=== PATIENT | female | born 2000 | race Two or more races ===

== ENCOUNTER 2019-08-29 23:10 | Emergency (ER) | payer SELFPAY ==
[~2019-08-29] VITALS: Ht 152.4 cm; Wt 85.0 kg
[2019-08-29 23:43] LABS: BILIRUBIN,URINE NEGATIVE (NEG); CLARITY,URINE CLEAR; COLOR,URINE YELLOW; NITRITE,URINE NEGATIVE (NEG); PROTEIN,URINE NEGATIVE (NEG-TRACE)
[2019-08-29 23:46] LABS: RBC,URINE 0 /HPF (0-2); SQUAMOUS EPITHELIAL CELL,UR FEW /LPF
[2019-08-29 23:47] LABS: BACTERIA,URINE MODERATE /HPF (0-FEW)
[2019-08-29 23:52] LABS: BASO % 0 % (0-3); EOS # 0.1 x10^3/uL (0.0-0.7); EOS % 1 % (0-3); HEMATOCRIT 33.7 % (36.0-47.0); LYMPH # 2.4 x10^3/uL (1.0-4.8); LYMPH % 45 % (24-48); MEAN CORPUSCULAR HEMOGLOBIN 21 pg (25-35); MEAN CORPUSCULAR HGB CONC 33 g/dL (31-37); MEAN CORPUSCULAR VOLUME 64 fL (79-100); MONO # 0.6 x10^3/uL (0.0-1.1); MONO % 11 % (0-9); NEUT # 2.2 x10^3/uL (1.8-7.7); NEUT % 42 % (31-73); PLATELET COUNT 239 x10^3/uL (140-400); RED BLOOD COUNT 5.31 x10^6/uL (3.50-5.40); RED CELL DISTRIBUTION WIDTH 18.7 % (11.5-14.5); WHITE BLOOD COUNT 5.3 x10^3/uL (4.0-11.0)
[2019-08-30 00:01] LABS: CALCIUM 8.6 mg/dL (8.5-10.1); CREATININE 0.7 mg/dL (0.6-1.0); GFR 106.7; POTASSIUM 3.7 mmol/L (3.5-5.1)
[2019-08-30 00:07] LABS: ALBUMIN 3.9 g/dL (3.4-5.0); ALBUMIN/GLOBULIN RATIO 1.2 (1.0-1.7); TOTAL BILIRUBIN 0.5 mg/dL (0.2-1.0); TOTAL PROTEIN 7.2 g/dL (6.4-8.2)
[2019-08-30 00:40] LABS: ANISOCYTOSIS SLIGHT; HYPOCHROMIA MARKED; MICROCYTOSIS MOD; PLT ESTIMATE ADEQUATE (ADEQUATE); POLYCHROMASIA SLIGHT
--- NOTE | 2019-08-30 00:56 | RAD ---
TRANSVAGINAL DATE: 08/29/2019 11:28 PM HISTORY: LEFT ADNEXAL TENDERNESS. LMP 08/19/2019. HCG negative. COMPARISON: None. TECHNIQUE: Transvaginal pelvic ultrasound was performed. FINDINGS: The uterus measures 7.5 x 4.7 x 3.2 cm. The myometrium demonstrates normal echogenicity without focal lesion. The endometrial echo measures 8 mm. The right ovary measures 3.5 x 2.1 x 1.9 cm. The left ovary measures 3.2 x 2.1 x 2.1 cm. The bilateral ovaries are physiologic in appearance. Normal vascularity in the bilateral ovaries by color Doppler examination. No free fluid. IMPRESSION: Physiologic appearance of the uterus and ovaries. No evidence of ovarian torsion. Electronically signed by: Rolando Oreilly MD (08/30/2019 12:52 AM) [facility]
[2019-08-30] MEDS ORDERED: AZITHROMYCIN 250 MG TABLET. PO ONE (01:00)
[2019-08-30] MEDS ORDERED: cefTRIAXone IM 250 MG VIAL IM ONE (01:00)
[2019-08-30] MEDS ORDERED: ONDANSETRON ODT 4 MG TAB.RAPDIS. PO ONE (01:00)
--- NOTE | 2019-08-30 01:22 | PHYS DOC ---
Past Medical History Past Medical History: No Pertinent History Past Surgical History: No Surgical History Smoking Status: Never Smoker Alcohol Use: None General Adult EDM: Chief Complaint: ABDOMINAL PAIN HPI: HPI: Patient is a 18 year old female presenting to the ED with a chief complaint of vaginal discharge. She also complains of pelvic pain that is been present for the last 2 or 3 days. Patient denies any new sexual partners. Patient states that she has similar complaints previously when she lived in [place]. Patient states that she was given medication at that time and had similar complaints. Patient denies vaginal bleeding, vaginal spotting, . Patient denies fever, chills, nausea, vomiting, chest pain, shortness of breath. Review of Systems: Review of Systems: Constitutional: Denies fever or chills. [] Eyes: Denies change in visual acuity. [] HENT: Denies nasal congestion or sore throat. [] Respiratory: Denies cough or shortness of breath. [] Cardiovascular: Denies chest pain or edema. [] GI: Complains of pelvic pain [] : Complains of vaginal discharge. Patient denies vaginal bleeding, vaginal spotting. Heart Score: Risk Factors: Risk Factors: DM, Current or recent (<one month) smoker, HTN, HLP, family history of CAD, obesity. Risk Scores: Score 0 - 3: 2.5% MACE over next 6 weeks - Discharge Home Score 4 - 6: 20.3% MACE over next 6 weeks - Admit for Clinical Observation Score 7 - 10: 72.7% MACE over next 6 weeks - Early Invasive Strategies Current Medications: Current Medications Medications (Trade) Dose Ordered Sig/[facility] Start Time Stop Time Status Last Admin Dose Admin Azithromycin (Zithromax) 1,000 mg 1X ONCE 08/30/19 01:00 08/30/19 01:01 DC Ceftriaxone Sodium (Rocephin Im) 250 mg 1X ONCE 08/30/19 01:00 08/30/19 01:01 DC Ondansetron HCl (Zofran Odt) 4 mg 1X ONCE 08/30/19 01:00 08/30/19 01:01 DC Allergies: Allergies: Allergies Coded Allergies Type Severity Reaction Last Updated Verified No Known Drug Allergies 08/29/19 No Physical Exam: PE: Constitutional: Well developed, well nourished, no acute distress, non-toxic appearance. [] HENT: Normocephalic, atraumatic Eyes: EOMI Neck: Normal range of motion, Supple Cardiovascular:Heart rate regular rhythm Lungs & Thorax: Bilateral breath sounds clear to auscultation [] Abdomen: Bilateral pelvic pain Vaginal exam: Cervical motion tenderness. Left adnexal tenderness. Moderate d ischarge present Extremities: No tenderness, ROM intact Neurologic: Alert and oriented X 3 Current Patient Data: Labs: Laboratory Tests Test 08/29/19 23:15 08/29/19 23:23 08/29/19 23:47 Urine Collection Type Unknown Urine Color Yellow Urine Clarity Clear Urine pH 6.0 (<5.0-8.0) Urine Specific [place] 1.025 (1.000-1.030) Urine Protein Negative mg/dL (NEG-TRACE) Urine Glucose (UA) Negative mg/dL (NEG) Urine Ketones (Stick) Negative mg/dL (NEG) Urine Blood Negative (NEG) Urine Nitrite Negative (NEG) Urine Bilirubin Negative (NEG) Urine Urobilinogen Dipstick 1.0 mg/dL (0.2 mg/dL) Urine Leukocyte Esterase Trace (NEG) Urine RBC 0 /HPF (0-2) Urine WBC 5-10 /HPF (0-4) Urine Squamous Epithelial Cells Few /LPF Urine Bacteria Moderate /HPF (0-FEW) Urine Mucus Mod /LPF POC Urine HCG, Qualitative Hcg negative (Negative) White Blood Count 5.3 x10^3/uL (4.0-11.0) Red Blood Count 5.31 x10^6/uL (3.50-5.40) Hemoglobin 11.0 g/dL (12.0-15.5) L Hematocrit 33.7 % (36.0-47.0) L Mean Corpuscular Volume 64 fL (79-100) L Mean Corpuscular Hemoglobin 21 pg (25-35) L Mean Corpuscular Hemoglobin Concent 33 g/dL (31-37) Red Cell Distribution Width 18.7 % (11.5-14.5) H Platelet Count 239 x10^3/uL (140-400) Neutrophils (%) (Auto) 42 % (31-73) Lymphocytes (%) (Auto) 45 % (24-48) Monocytes (%) (Auto) 11 % (0-9) H Eosinophils (%) (Auto) 1 % (0-3) Basophils (%) (Auto) 0 % (0-3) Neutrophils # (Auto) 2.2 x10^3/uL (1.8-7.7) Lymphocytes # (Auto) 2.4 x10^3/uL (1.0-4.8) Monocytes # (Auto) 0.6 x10^3/uL (0.0-1.1) Eosinophils # (Auto) 0.1 x10^3/uL (0.0-0.7) Basophils # (Auto) 0.0 x10^3/uL (0.0-0.2) Platelet Estimate Adequate (ADEQUATE) Giant Platelets Occ Polychromasia Slight Hypochromasia Marked Basophilic Stippling Present Anisocytosis Slight Microcytosis Mod Sodium Level 140 mmol/L (136-145) Potassium Level 3.7 mmol/L (3.5-5.1) Chloride Level 104 mmol/L (98-107) Carbon Dioxide Level 28 mmol/L (21-32) Anion Gap 8 (6-14) Blood Urea Nitrogen 11 mg/dL (7-20) Creatinine 0.7 mg/dL (0.6-1.0) Estimated GFR (Cockcroft-Gault) 106.7 BUN/Creatinine Ratio 16 (6-20) Glucose Level 98 mg/dL (70-99) Calcium Level 8.6 mg/dL (8.5-10.1) Total Bilirubin 0.5 mg/dL (0.2-1.0) Aspartate Amino Transferase (AST) 21 U/L (15-37) Alanine Aminotransferase (ALT) 33 U/L (14-59) Alkaline Phosphatase 87 U/L (46-116) Total Protein 7.2 g/dL (6.4-8.2) Albumin 3.9 g/dL (3.4-5.0) Albumin/Globulin Ratio 1.2 (1.0-1.7) Laboratory Tests 08/29/19 23:47 Laboratory Tests 08/29/19 23:47 Microbiology 08/29/19 Wet Prep - Final, Complete Vital Signs: Vital Signs Date Time Temp Pulse Resp B/P (MAP) Pulse Ox O2 Delivery O2 Flow Rate FiO2 08/29/19 23:15 98.3 66 16 119/66 (83) 98 Room Air 98.3 EKG: EKG: [] Radiology/Procedures: Radiology/Procedures: [] Impression: US PELVIS IMPRESSION: Physiologic appearance of the uterus and ovaries. No evidence of ovarian torsion. Course & Med Decision Making: Course & Med Decision Making Pertinent Labs and Imaging studies reviewed. (See chart for details) Labs are within normal limits. Ultrasound does not show any acute process. Wet prep is negative. No clue cells seen. Patient was treated with Rocephin 250 mg IM and Zithromax 1000 mg oral tablet Patient is also given Diflucan in the ER. Patient will be discharged home on doxycycline. Discussed results and plan of care with patient. Patient is instructed to follow up with PCP in one to 2 days. Appropriate discharge instructions given to patient to return to the ED or to seek immediate medical evaluation. Patient is instructed to return to the ED if symptoms worsen or if any concerns. Dragon Disclaimer: Dragon Disclaimer: This electronic medical record was generated, in whole or in part, using a voice recognition dictation system. Departure Departure Impression: Primary Impression: Cervicitis Disposition: HOME, SELF-CARE Condition: GOOD Referrals: NO PCP (PCP) Patient Instructions: Cervicitis, Pelvic Inflammatory Disease Additional Instructions: Discussed results and plan of care with patient. Patient is instructed to follow up with PCP in one to 2 days. Appropriate discharge instructions given to patient to return to the ED or to seek immediate medical evaluation. Patient is instructed to return to the ED if symptoms worsen or if any concerns. Patient is instructed not to have any intercourse until symptoms are resolved. Scripts Doxycycline Hyclate (DOXYCYCLINE HYCLATE) 100 Mg Tablet 1 TAB PO BID, #20 TAB Prov: NEVILLE PLASCENCIA DO 08/30/19 Justicifation of Admission Dx: Justifications for Admission: Justification of Admission Dx: NEVILLE Souza DO Aug 30, 2019 01:22
[2019-08-30] MEDS ORDERED: FLUCONAZOLE 100 MG TABLET. ONE (01:23)
[2019-08-30] MEDS ORDERED: DOXY100T PO (01:25)
[2019-08-30 01:41] VITALS: BP 117/71
[2019-08-30] MEDS ORDERED: FLUCONAZOLE 100 MG TABLET. PO ONE (02:00)
[2019-08-30] MEDS ORDERED: DOXYCYCLINE HYCLATE 100 MG TABLET PO ONE (02:00)
[2019-08-31 19:09] LABS: GC PROBE Negative (Negative)
== END 2019-08-30 01:47 | disposition home or self-care (01) ==
LOC: ER 23:10
DX: N72 Inflammatory disease of cervix uteri (principal)
CPT/HCPCS: 76830; 80053; 81001; 81025; 85025; 87086; 87491; 87591; 96372; 99284; J0696; Q0111; 36415

== ENCOUNTER 2020-06-19 23:12 | Emergency (ER) | payer SELFPAY ==
[~2020-06-19] VITALS: Ht 160 cm; Wt 81.8 kg
[~2020-06-19 23:12] MED LIST: DOXY100T PO
[2020-06-20 01:22] LABS: BASO % 0 % (0-3); EOS % 0 % (0-3); HEMATOCRIT 31.9 % (36.0-47.0); HEMOGLOBIN 10.2 g/dL (12.0-15.5); LYMPH # 1.6 x10^3/uL (1.0-4.8); LYMPH % 35 % (24-48); MEAN CORPUSCULAR HEMOGLOBIN 21 pg (25-35); MEAN CORPUSCULAR HGB CONC 32 g/dL (31-37); MEAN CORPUSCULAR VOLUME 65 fL (79-100); MONO # 0.5 x10^3/uL (0.0-1.1); MONO % 11 % (0-9); NEUT # 2.5 x10^3/uL (1.8-7.7); NEUT % 54 % (31-73); PLATELET COUNT 291 x10^3/uL (140-400); RED CELL DISTRIBUTION WIDTH 16.3 % (11.5-14.5); WHITE BLOOD COUNT 4.7 x10^3/uL (4.0-11.0)
[2020-06-20 01:33] LABS: BILIRUBIN,URINE NEGATIVE (NEG); CLARITY,URINE CLEAR; COLOR,URINE YELLOW; NITRITE,URINE NEGATIVE (NEG); PROTEIN,URINE NEGATIVE (NEG-TRACE)
[2020-06-20 01:40] LABS: CALCIUM 9.4 mg/dL (8.5-10.1); CREATININE 0.6 mg/dL (0.6-1.0); GFR 126.2; POTASSIUM 3.6 mmol/L (3.5-5.1)
[2020-06-20 01:48] LABS: ALBUMIN 4.3 g/dL (3.4-5.0); ALBUMIN/GLOBULIN RATIO 1.2 (1.0-1.7); TOTAL BILIRUBIN 0.7 mg/dL (0.2-1.0); TOTAL PROTEIN 7.8 g/dL (6.4-8.2)
[2020-06-20 02:04] LABS: BACTERIA,URINE FEW /HPF (0-FEW); RBC,URINE 0 /HPF (0-2)
[2020-06-20 02:29] LABS: PLT ESTIMATE ADEQUATE (ADEQUATE)
[2020-06-20 02:32] LABS: ANISOCYTOSIS MOD; HYPOCHROMIA MARKED; MICROCYTOSIS MARKED; OVALOCYTES MOD; POLYCHROMASIA SLIGHT
[2020-06-20 02:33] LABS: SPHEROCYTES OCC
--- NOTE | 2020-06-20 03:04 | RAD ---
OB ultrasound dated 06/20/2020. No comparison available. Clinical indication: Pelvic pain. FINDINGS: Gestational sac within the endometrial canal measures 0.25 cm, correlating with a 5 week 0 day gestat ion. No pole or cardiac activity at this time. No subchorionic collection. The uterus measures 8.5 x 4.9 x 3.5 cm. Right ovary measures 2.6 x 2.2 x 1.8 cm. Left ovary measures 2.1 x 1.9 x 1.8 cm. No adnexal mass or f ree fluid. Normal color flow to both ovaries. IMPRESSION: 1. Gestational sac in the endometrial canal with no evidence of pole or cardiac activity at thi s time. This could represent an early viable IUP. Correlate with beta hCG values and follow-up imagin g if indicated. 2. No apparent adnexal mass or free fluid. Electronically signed by: Epi Blanco MD (06/20/2020 3:01 AM) [facility]
--- NOTE | 2020-06-20 03:08 | PHYS DOC ---
Past Medical History Past Medical History: No Pertinent History Past Surgical History: No Surgical History Smoking Status: Never Smoker Alcohol Use: None General Adult EDM: Chief Complaint: ABDOMINAL PAIN IN HPI: HPI: Patient is a 19 year old female who is about 6 weeks presented to ER due to low abdominal pain with vaginal discharge. Last menstrual period was on 05/13/2020. She has been 3 times have to live children. Patient denies any vaginal bleeding. Patient denies any cough or fever. Patient denies any chest pain or any trouble breathing. Review of Systems: Review of Systems: Constitutional: Denies fever or chills. [] Eyes: Denies change in visual acuity. [] HENT: Denies nasal congestion or sore throat. [] Respiratory: Denies cough or shortness of breath. [] Cardiovascular: Denies chest pain or edema. [] GI: Denies abdominal pain, nausea, vomiting, bloody stools or diarrhea. [] : Denies dysuria. Positive for vaginal discharge and pelvic pain. Musculoskeletal: Denies back pain or joint pain. [] Integument: Denies rash. [] Neurologic: Denies headache, focal weakness or sensory changes. [] Endocrine: Denies polyuria or polydipsia. [] Lymphatic: Denies swollen glands. [] Psychiatric: Denies depression or anxiety. [] Heart Score: C/O Chest Pain: N/A Risk Factors: Risk Factors: DM, Current or recent (<one month) smoker, HTN, HLP, family history of CAD, obesity. Risk Scores: Score 0 - 3: 2.5% MACE over next 6 weeks - Discharge Home Score 4 - 6: 20.3% MACE over next 6 weeks - Admit for Clinical Observation Score 7 - 10: 72.7% MACE over next 6 weeks - Early Invasive Strategies Allergies: Allergies: Allergies Coded Allergies Type Severity Reaction Last Updated Verified I S O L A T I O N *CONTACT* Allergy Unknown 09/02/19 Yes No Known Medication Allergies Allergy Unknown 09/02/19 Yes Physical Exam: PE: Constitutional: Well developed, well nourished, no acute distress, non-toxic appearance. [] HENT: Normocephalic, atraumatic, bilateral external ears normal, oropharynx moist, no oral exudates, nose normal. [] Eyes: PERRLA, EOMI, conjunctiva normal, no discharge. [] Neck: Normal range of motion, no tenderness, supple, no stridor. [] Cardiovascular:Heart rate regular rhythm, no murmur [] Lungs & Thorax: Bilateral breath sounds clear to auscultation [] Abdomen: Bowel sounds normal, soft, no tenderness, no masses, no pulsatile masses. : NO VAGINAL BLEEDING, CERVIX IS CLOSE, NO CERVICAL MOTION TENDERNESS TO PALPATION, NO ADNEXA TENDERNESS TO PALPATION, CLEAR DISCHARGE IN VAGINAL CANAL. Skin: Warm, dry, no erythema, no rash. [] Back: No tenderness, no CVA tenderness. [] Extremities: No tenderness, no cyanosis, no clubbing, ROM intact, no edema. [] Neurologic: Alert and oriented X 3, normal motor function, normal sensory function, no focal deficits noted. [] Psychologic: Affect normal, judgement normal, mood normal. [] Current Patient Data: Labs: Laboratory Tests Test 06/20/20 00:45 06/20/20 00:48 06/20/20 01:25 Maternal Serum HCG Beta Subunit 1375 mIU/mL (0-5) H White Blood Count 4.7 x10^3/uL (4.0-11.0) Red Blood Count 4.90 x10^6/uL (3.50-5.40) Hemoglobin 10.2 g/dL (12.0-15.5) L Hematocrit 31.9 % (36.0-47.0) L Mean Corpuscular Volume 65 fL (79-100) L Mean Corpuscular Hemoglobin 21 pg (25-35) L Mean Corpuscular Hemoglobin Concent 32 g/dL (31-37) Red Cell Distribution Width 16.3 % (11.5-14.5) H Platelet Count 291 x10^3/uL (140-400) Neutrophils (%) (Auto) 54 % (31-73) Lymphocytes (%) (Auto) 35 % (24-48) Monocytes (%) (Auto) 11 % (0-9) H Eosinophils (%) (Auto) 0 % (0-3) Basophils (%) (Auto) 0 % (0-3) Neutrophils # (Auto) 2.5 x10^3/uL (1.8-7.7) Lymphocytes # (Auto) 1.6 x10^3/uL (1.0-4.8) Monocytes # (Auto) 0.5 x10^3/uL (0.0-1.1) Eosinophils # (Auto) 0.0 x10^3/uL (0.0-0.7) Basophils # (Auto) 0.0 x10^3/uL (0.0-0.2) Platelet Estimate Adequate (ADEQUATE) Polychromasia Slight Hypochromasia Marked Anisocytosis Mod Microcytosis Marked Spherocytes Occ Ovalocytes Mod Sodium Level 143 mmol/L (136-145) Potassium Level 3.6 mmol/L (3.5-5.1) Chloride Level 104 mmol/L (98-107) Carbon Dioxide Level 27 mmol/L (21-32) Anion Gap 12 (6-14) Blood Urea Nitrogen 8 mg/dL (7-20) Creatinine 0.6 mg/dL (0.6-1.0) Estimated GFR (Cockcroft-Gault) 126.2 BUN/Creatinine Ratio 13 (6-20) Glucose Level 97 mg/dL (70-99) Calcium Level 9.4 mg/dL (8.5-10.1) Total Bilirubin 0.7 mg/dL (0.2-1.0) Aspartate Amino Transferase (AST) 24 U/L (15-37) Alanine Aminotransferase (ALT) 30 U/L (14-59) Alkaline Phosphatase 73 U/L (46-116) Total Protein 7.8 g/dL (6.4-8.2) Albumin 4.3 g/dL (3.4-5.0) Albumin/Globulin Ratio 1.2 (1.0-1.7) Urine Collection Type Unknown Urine Color Yellow Urine Clarity Clear Urine pH 6.0 (<5.0-8.0) Urine Specific [place] 1.025 (1.000-1.030) Urine Protein Negative mg/dL (NEG-TRACE) Urine Glucose (UA) Negative mg/dL (NEG) Urine Ketones (Stick) Negative mg/dL (NEG) Urine Blood Negative (NEG) Urine Nitrite Negative (NEG) Urine Bilirubin Negative (NEG) Urine Urobilinogen Dipstick 1.0 mg/dL (0.2 mg/dL) Urine Leukocyte Esterase Trace (NEG) Urine RBC 0 /HPF (0-2) Urine WBC 1-4 /HPF (0-4) Urine Squamous Epithelial Cells Few /LPF Urine Bacteria Few /HPF (0-FEW) Urine Mucus Slight /LPF Laboratory Tests 06/20/20 00:48 Laboratory Tests 06/20/20 00:48 Vital Signs: Vital Signs Date Time Temp Pulse Resp B/P (MAP) Pulse Ox O2 Delivery O2 Flow Rate FiO2 06/20/20 00:10 98.2 86 18 132/87 (102) 100 Room Air 98.2 EKG: EKG: [] Radiology/Procedures: Radiology/Procedures: [facility] [id number] [place] [address] IMAGING REPORT Signed PATIENT: FLETCHER CHILDRESSUNT: [id number] : 2000 LOCATION: ER AGE: 19 SEX: F EXAM STATUS: REG ER ORD. PHYSICIAN: SEVERO BARRIGA DO REASON: , pelvic pain for 1 week, hcg 1375 PROCEDURE: OB < 14 WKS OB ultrasound dated 06/20/2020. No comparison available. Clinical indication: Pelvic pain. FINDINGS: Gestational sac within the endometrial canal measures 0.25 cm, correlating with a 5 week 0 day gestation. No pole or cardiac activity at this time. No subchorionic collection. The uterus measures 8.5 x 4.9 x 3.5 cm. Right ovary measures 2.6 x 2.2 x 1.8 cm. Left ovary measures 2.1 x 1.9 x 1.8 cm. No adnexal mass or free fluid. Normal color flow to both ovaries. IMPRESSION: 1. Gestational sac in the endometrial canal with no evidence of pole or cardiac activity at this time. This could represent an early viable IUP. Correl ate with beta hCG values and follow-up imaging if indicated. 2. No apparent adnexal mass or free fluid. Electronically signed by: Epi Blanco MD (06/20/2020 3:01 AM) [facility] DICTATED and SIGNED BY: EPI BLANCO MD DATE: 06/20/20 [id number] Course & Med Decision Making: Course & Med Decision Making Pertinent Labs and Imaging studies reviewed. (See chart for details) Patient is a 19-year-old female who presents to ER due to low abdominal pain for 1 week, no vaginal bleeding. Patient is . Her lab work did not show any acute problem, ultrasound did show a gestational sac but no heart tone. Brittanie Disclaimer: Brittanie Disclaimer: This electronic medical record was generated, in whole or in part, using a voice recognition dictation system. Departure Departure Impression: Primary Impression: Abdominal pain during Disposition: HOME / SELF CARE / HOMELESS Condition: STABLE Referrals: NO PCP (PCP) MONAE GAONA Jr, MD PLEASE CALL THIS RETAIL LOSS PREVENTION OFFICER DOCTOR FOR OUTPATIENT FOLLOW UP. Patient Instructions: Abdominal Pain During SEVERO BARRIGA DO Jun 20, 2020 03:08
[2020-06-20 04:50] VITALS: BP 119/63
[2020-06-21 14:12] LABS: GC PROBE Negative (Negative)
== END 2020-06-20 04:50 | disposition home or self-care (01) ==
LOC: ER 23:12
DX: O26.891 Other specified pregnancy related conditions, first trimester (principal); R10.2 Pelvic and perineal pain; N89.8 Other specified noninflammatory disorders of vagina; Z3A.01 Less than 8 weeks gestation of pregnancy; Z88.8 Allergy status to other drugs, medicaments and biological substances
CPT/HCPCS: 36415; 76801; 80053; 81001; 84702; 85025; 86900; 86901; 87086; 87491; 87591; 99285; Q0111

== ENCOUNTER 2020-07-01 14:35 | Emergency (ER) | payer SELFPAY ==
[~2020-07-01] VITALS: Ht 154.9 cm; Wt 84.6 kg
[2020-07-01 16:09] LABS: BASO % 1 % (0-3); EOS % 1 % (0-3); HEMATOCRIT 32.3 % (36.0-47.0); HEMOGLOBIN 10.5 g/dL (12.0-15.5); LYMPH # 1.4 x10^3/uL (1.0-4.8); LYMPH % 31 % (24-48); MEAN CORPUSCULAR HEMOGLOBIN 21 pg (25-35); MEAN CORPUSCULAR HGB CONC 33 g/dL (31-37); MEAN CORPUSCULAR VOLUME 65 fL (79-100); MONO # 0.5 x10^3/uL (0.0-1.1); MONO % 12 % (0-9); NEUT # 2.5 x10^3/uL (1.8-7.7); NEUT % 56 % (31-73); PLATELET COUNT 290 x10^3/uL (140-400); RED CELL DISTRIBUTION WIDTH 16.7 % (11.5-14.5); WHITE BLOOD COUNT 4.4 x10^3/uL (4.0-11.0)
[2020-07-01 16:10] LABS: BILIRUBIN,URINE NEGATIVE (NEG); CLARITY,URINE CLEAR; COLOR,URINE YELLOW; NITRITE,URINE NEGATIVE (NEG); PROTEIN,URINE NEGATIVE (NEG-TRACE)
[2020-07-01 16:18] LABS: CALCIUM 8.9 mg/dL (8.5-10.1); CREATININE 0.6 mg/dL (0.6-1.0); GFR 126.2; POTASSIUM 3.8 mmol/L (3.5-5.1)
[2020-07-01 16:22] LABS: BACTERIA,URINE FEW /HPF (0-FEW); RBC,URINE 0 /HPF (0-2); WBC,URINE RARE /HPF (0-4)
[2020-07-01 16:25] LABS: ALBUMIN 4.2 g/dL (3.4-5.0); ALBUMIN/GLOBULIN RATIO 1.2 (1.0-1.7); TOTAL BILIRUBIN 0.7 mg/dL (0.2-1.0); TOTAL PROTEIN 7.8 g/dL (6.4-8.2)
[2020-07-01 16:52] LABS: MICROCYTOSIS MARKED; PLT ESTIMATE ADEQUATE (ADEQUATE); POLYCHROMASIA SLIGHT
[2020-07-01 16:53] LABS: HYPOCHROMIA MOD; OVALOCYTES FEW
[2020-07-01 16:54] LABS: ANISOCYTOSIS SLIGHT; SCHISTOCYTES OCC
--- NOTE | 2020-07-01 17:01 | RAD ---
EXAM: Obstetrics sonogram. HISTORY: Pain. TECHNIQUE: Sonographic imaging of the pelvis was performed. COMPARISON: None. FINDINGS: The uterus is normal in size. There is a single intrauterine gestational sac with kelly e and yolk sac. The crown-rump length is 5.2 mm, corresponding with a gestational age of 6 week s and 2 days. The heart rate is normal at 123 bpm. The gestational sac is normal in configurati on and location. The ovaries are normal in size and demonstrate normal blood flow. There are bilatera l ovarian follicles/likely are cysts measuring 1.8 cm of the right and 2.1 cm on the left. There is n o pelvic free fluid. IMPRESSION: 1. Single intrauterine fetus with an estimated gestational age of 6 weeks and 2 days and heart rate o f 123 bpm. 2. Bilateral dominant ovarian follicles/follicular cysts measuring 1.8 cm on the right and 2.1 cm on the left. Electronically signed by: Tammy Greenfield MD (07/01/2020 4:59 PM) [facility]
--- NOTE | 2020-07-01 17:50 | PHYS DOC ---
Past Medical History Past Medical History: No Pertinent History (MANISHROSAS Alejandra COUNTERINTELLIGENCE SPECIALIST) Past Surgical History: No Surgical History (OZIELROSAS MARTIN COUNTERINTELLIGENCE SPECIALIST) Smoking Status: Never Smoker Alcohol Use: None (DAVIDROSAS Steven COUNTERINTELLIGENCE SPECIALIST) General Adult EDM: Chief Complaint: ABDOMINAL PAIN IN HPI: HPI: Patient is a 19 year old female 4 para 2 with 1 miscarriage presenting today complaining of 8 out of 10 pelvic pain, worse on the right radiating to the right flank, symptoms began today. Patient is also complaining of vaginal spotting only when she wipes herself. Denies any nausea, vomiting. States most of her pain is on activity. She states she has an appointment with [facility] for OB care next month. Patient states when she was in the ED almost 2 weeks ago she was diagnosed with a UTI and started on cephalexin which she finished (MANISHROSAS Alejandra COUNTERINTELLIGENCE SPECIALIST) Review of Systems: Review of Systems: Constitutional: Denies fever or chills. [] Eyes: Denies change in visual acuity. [] HENT: Denies nasal congestion or sore throat. [] Respiratory: Denies cough or shortness of breath. [] Cardiovascular: Denies chest pain or edema. [] GI: Reports abdominal pain, vaginal spotting, denies nausea, vomiting, bloody stools or diarrhea. [] : Reports right flank pain, denies dysuria Musculoskeletal: Denies back pain or joint pain. [] Integument: Denies rash. [] Neurologic: Denies headache, focal weakness or sensory changes. [] Psychiatric: Denies depression or anxiety. [] (MANISHROSAS Alejandra COUNTERINTELLIGENCE SPECIALIST) Heart Score: C/O Chest Pain: N/A Risk Factors: Risk Factors: DM, Current or recent (<one month) smoker, HTN, HLP, family history of CAD, obesity. Risk Scores: Score 0 - 3: 2.5% MACE over next 6 weeks - Discharge Home Score 4 - 6: 20.3% MACE over next 6 weeks - Admit for Clinical Observation Score 7 - 10: 72.7% MACE over next 6 weeks - Early Invasive Strategies (ROSAS HERNANDEZ COUNTERINTELLIGENCE SPECIALIST) Allergies: Allergies: Allergies Coded Allergies Type Severity Reaction Last Updated Verified I S O L A T I O N *CONTACT* Allergy Unknown 09/02/19 Yes No Known Medication Allergies Allergy Unknown 09/02/19 Yes (ROSAS HERNANDEZ COUNTERINTELLIGENCE SPECIALIST) Physical Exam: PE: Constitutional: Well developed, well nourished, no acute distress, non-toxic appearance. [] HENT: Normocephalic, atraumatic, bilateral external ears normal, oropharynx moist, no oral exudates, nose normal. [] Eyes: PERRLA, EOMI, conjunctiva normal, no discharge. [] Neck: Normal range of motion, no tenderness, supple, no stridor. [] Cardiovascular:Heart rate regular rhythm, no murmur [] Lungs & Thorax: Bilateral breath sounds clear to auscultation [] Abdomen: Bowel sounds normal, soft, no tenderness, no masses, no pulsatile masses. [] Pelvic exam External pelvic appears normal, cervix is closed, no CMT, no adnexal tenderness, trace amount of brownish discharge in the vaginal vault consistent with spotting Skin: Warm, dry, no erythema, no rash. [] Back: No tenderness, no CVA tenderness. [] Extremities: No tenderness, no cyanosis, no clubbing, ROM intact, no edema. [] Neurologic: Alert and oriented X 3, normal motor function, normal sensory function, no focal deficits noted. [] Psychologic: Affect normal, judgement normal, mood normal. [] (ROSAS HERNANDEZ COUNTERINTELLIGENCE SPECIALIST) Current Patient Data: Labs: Laboratory Tests Test 07/01/20 15:50 White Blood Count 4.4 x10^3/uL (4.0-11.0) Red Blood Count 5.00 x10^6/uL (3.50-5.40) Hemoglobin 10.5 g/dL (12.0-15.5) L Hematocrit 32.3 % (36.0-47.0) L Mean Corpuscular Volume 65 fL (79-100) L Mean Corpuscular Hemoglobin 21 pg (25-35) L Mean Corpuscular Hemoglobin Concent 33 g/dL (31-37) Red Cell Distribution Width 16.7 % (11.5-14.5) H Platelet Count 290 x10^3/uL (140-400) Neutrophils (%) (Auto) 56 % (31-73) Lymphocytes (%) (Auto) 31 % (24-48) Monocytes (%) (Auto) 12 % (0-9) H Eosinophils (%) (Auto) 1 % (0-3) Basophils (%) (Auto) 1 % (0-3) Neutrophils # (Auto) 2.5 x10^3/uL (1.8-7.7) Lymphocytes # (Auto) 1.4 x10^3/uL (1.0-4.8) Monocytes # (Auto) 0.5 x10^3/uL (0.0-1.1) Eosinophils # (Auto) 0.0 x10^3/uL (0.0-0.7) Basophils # (Auto) 0.0 x10^3/uL (0.0-0.2) Platelet Estimate Adequate (ADEQUATE) Polychromasia Slight Hypochromasia Mod Anisocytosis Slight Microcytosis Marked Ovalocytes Few Schistocytes Occ Urine Collection Type Unknown Urine Color Yellow Urine Clarity Clear Urine pH 7.0 (<5.0-8.0) Urine Specific [place] 1.015 (1.000-1.030) Urine Protein Negative mg/dL (NEG-TRACE) Urine Glucose (UA) Negative mg/dL (NEG) Urine Ketones (Stick) Negative mg/dL (NEG) Urine Blood Negative (NEG) Urine Nitrite Negative (NEG) Urine Bilirubin Negative (NEG) Urine Urobilinogen Dipstick 1.0 mg/dL (0.2 mg/dL) Urine Leukocyte Esterase Trace (NEG) Urine RBC 0 /HPF (0-2) Urine WBC Rare /HPF (0-4) Urine Squamous Epithelial Cells Many /LPF Urine Bacteria Few /HPF (0-FEW) Urine Mucus Slight /LPF Maternal Serum HCG Beta Subunit 74843 mIU/mL (0-5) H Sodium Level 140 mmol/L (136-145) Potassium Level 3.8 mmol/L (3.5-5.1) Chloride Level 104 mmol/L (98-107) Carbon Dioxide Level 29 mmol/L (21-32) Anion Gap 7 (6-14) Blood Urea Nitrogen 8 mg/dL (7-20) Creatinine 0.6 mg/dL (0.6-1.0) Estimated GFR (Cockcroft-Gault) 126.2 BUN/Creatinine Ratio 13 (6-20) Glucose Level 85 mg/dL (70-99) Calcium Level 8.9 mg/dL (8.5-10.1) Total Bilirubin 0.7 mg/dL (0.2-1.0) Aspartate Amino Transferase (AST) 28 U/L (15-37) Alanine Aminotransferase (ALT) 54 U/L (14-59) Alkaline Phosphatase 69 U/L (46-116) Total Protein 7.8 g/dL (6.4-8.2) Albumin 4.2 g/dL (3.4-5.0) Albumin/Globulin Ratio 1.2 (1.0-1.7) Laboratory Tests 07/01/20 15:50 Laboratory Tests 07/01/20 15:50 Microbiology 07/01/20 Wet Prep - Final, Complete Vital Signs: Vital Signs Date Time Temp Pulse Resp B/P (MAP) Pulse Ox O2 Delivery O2 Flow Rate FiO2 07/01/20 14:42 97.9 77 16 123/72 (89) 98 Room Air 97.9 (ROSAS HERNANDEZ APRN) EKG: EKG: [] (ROSAS HERNANDEZ APRN) Radiology/Procedures: Radiology/Procedures: []PROCEDURE: OB < 14 WKS EXAM: Obstetrics sonogram. HISTORY: Pain. TECHNIQUE: Sonographic imaging of the pelvis was performed. COMPARISON: None. FINDINGS: The uterus is normal in size. There is a single intrauterine gestat ional sac with pole and yolk sac. The crown-rump length is 5.2 mm, corresponding with a gestational age of 6 weeks and 2 days. The heart rate is normal at 123 bpm. The gestational sac is normal in configuration and location. The ovaries are normal in size and demonstrate normal blood flow. There are bilateral ovarian follicles/likely are cysts measuring 1.8 cm of the right and 2.1 cm on the left. There is no pelvic free fluid. IMPRESSION: 1. Single intrauterine fetus with an estimated gestational age of 6 weeks and 2 days and heart rate of 123 bpm. 2. Bilateral dominant ovarian follicles/follicular cysts measuring 1.8 cm on the right and 2.1 cm on the left. Electronically signed by: Tammy Gan MD (07/01/2020 4:59 PM) [facility] DICTATED and SIGNED BY: TAMMY GAN MD DATE: 07/01/20 [id number] (ROSAS HERNANDEZ APRN) Course & Med Decision Making: Course & Med Decision Making Pertinent Labs and Imaging studies reviewed. (See chart for details) This is a 19-year-old female patient presenting to the ED today with abdominal pain in , back pain and vaginal spotting. Beta-hCG 15,063. CBC, CMP, UA, wet prep-no acute findings OB ultrasound noted for an IUP heart rate 123 Patient was advised to maintain pelvic rest. Provided return precautions and discharged in stable condition. Informed to follow-up with her REFRIGERATOR REPAIRMAN next week (ROSAS HERNANDEZ APRN) Dragon Disclaimer: Dragon Disclaimer: This electronic medical record was generated, in whole or in part, using a voice recognition dictation system. (ROSAS HERNANDEZ APRN) Departure Departure Impression: Primary Impression: Vaginal bleeding in Additional Impression: Abdominal pain in Qualified Codes: O26.891 - Other specified related conditions, first trimester; R10.9 - Unspecified abdominal pain Disposition: HOME / SELF CARE / HOMELESS Condition: STABLE Referrals: UNKNOWN PCP NAME (PCP) Follow-up with [facility] as soon as possible Patient Instructions: Abdominal Pain During , Vaginal Bleeding During , First Trimester Additional Instructions: You were evaluated in the emergency room today, your ultrasound shows you are 6 weeks 2 days . Your lab work was negative for any acute findings. Considering vaginal spotting we recommended maintain pelvic rest, no sex, no heavy lifting, no strenuous activities until seen by the REFRIGERATOR REPAIRMAN Attending Signature Attending Signature I have participated in the care of this patient and I have reviewed and agree with all pertinent clinical information above including history, exam, and recommendations. (SEVERO BARRIGA DO) ROSAS HERNANDEZ APRN July 01, 2020 17:50 SEVERO BARRIGA DO July 02, 2020 17:57
[2020-07-01 17:55] VITALS: BP 126/76
[2020-07-03 14:25] LABS: GC PROBE Negative (Negative)
== END 2020-07-01 17:55 | disposition home or self-care (01) ==
LOC: ER 14:35
DX: O46.91 Antepartum hemorrhage, unspecified, first trimester (principal); R10.9 Unspecified abdominal pain; R10.2 Pelvic and perineal pain; Z91.041 Radiographic dye allergy status
CPT/HCPCS: 76801; 80053; 81001; 84702; 85025; 87086; 87491; 87591; 99284; Q0111

== ENCOUNTER 2020-07-03 15:37 | Observation (INO) | payer SELFPAY ==
[~2020-07-03] VITALS: Ht 157.5 cm; Wt 84.0 kg
[2020-07-03 16:38] LABS: BASO % 0 % (0-3); EOS % 1 % (0-3); HEMATOCRIT 31.6 % (36.0-47.0); HEMOGLOBIN 10.4 g/dL (12.0-15.5); LYMPH # 1.7 x10^3/uL (1.0-4.8); LYMPH % 34 % (24-48); MEAN CORPUSCULAR HEMOGLOBIN 21 pg (25-35); MEAN CORPUSCULAR HGB CONC 33 g/dL (31-37); MEAN CORPUSCULAR VOLUME 64 fL (79-100); MONO # 0.5 x10^3/uL (0.0-1.1); MONO % 9 % (0-9); NEUT % 57 % (31-73); PLATELET COUNT 302 x10^3/uL (140-400); RED BLOOD COUNT 4.92 x10^6/uL (3.50-5.40); RED CELL DISTRIBUTION WIDTH 16.7 % (11.5-14.5); WHITE BLOOD COUNT 5.2 x10^3/uL (4.0-11.0)
[2020-07-03 16:47] LABS: CALCIUM 8.8 mg/dL (8.5-10.1); CREATININE 0.6 mg/dL (0.6-1.0); GFR 126.2; POTASSIUM 3.7 mmol/L (3.5-5.1)
[2020-07-03 16:53] LABS: ALBUMIN 4.1 g/dL (3.4-5.0); ALBUMIN/GLOBULIN RATIO 1.1 (1.0-1.7); TOTAL BILIRUBIN 0.6 mg/dL (0.2-1.0); TOTAL PROTEIN 7.8 g/dL (6.4-8.2)
[2020-07-03 16:58] LABS: ANISOCYTOSIS SLIGHT; MICROCYTOSIS MARKED; PLT ESTIMATE ADEQUATE (ADEQUATE); POLYCHROMASIA SLIGHT
[2020-07-03 16:59] LABS: OVALOCYTES FEW
[2020-07-03 17:00] LABS: HYPOCHROMIA MOD; SCHISTOCYTES OCC
--- NOTE | 2020-07-03 17:28 | RAD ---
EXAM: Obstetrics sonogram. HISTORY: Vaginal bleeding in . TECHNIQUE: Transvaginal sonographic imaging of the pelvis was performed. COMPARISON: 07/01/2020. FINDINGS: The uterus is normal in size. The endometrial stripe measures 13 mm in thickness. The recen tly demonstrated intrauterine gestational sac is no longer seen within the endometrial cavity. There is a small rounded region of hypoechogenicity within the endocervical canal on a single image which m ay be due to the previously demonstrated gestational sac. The ovaries are normal in size and demonstr ate normal blood flow. There is no pelvic free fluid. IMPRESSION: 1. Interval early miscarriage. The recently demonstrated gestational sac is not within the endometria l cavity. The endometrial sac may be passing through the endocervical canal or there are blood produc ts within the endocervical canal, consistent with reported vaginal bleeding. Correlate with serial be ta hCG levels to confirm complete decline and exclude missed miscarriage. 2. Unremarkable ovaries. Electronically signed by: Tammy Greenfield MD (07/03/2020 5:26 PM) [facility]
[2020-07-03] MEDS ORDERED: IV DEXTROSE 5%-LACT RINGERS 1,000 ML IV ONE (18:30)
[2020-07-03] MEDS ORDERED: ONDANSETRON PF 4 MG/2 ML VIAL. IV PRN (18:30)
[2020-07-03] MEDS ORDERED: ONDANSETRON PF 4 MG/2 ML VIAL. IV ONE (18:30)
[2020-07-03] MEDS ORDERED: MORPHINE SULFATE 4 MG/ML VIAL. IV PRN (18:30)
[2020-07-03] MEDS ORDERED: MORPHINE SULFATE 4 MG/ML VIAL. IV ONE (18:30)
--- NOTE | 2020-07-03 19:40 | ED.ADGEN ---
Past Medical History Past Medical History: No Pertinent History Additional Past Surgical Histo: D&C Smoking Status: Never Smoker Alcohol Use: None General Adult EDM: Chief Complaint: VAGINAL BLEEDING HPI: HPI: Patient is a 19 year old female who presents to the emergency department with complaints of pelvic pain and vaginal bleeding during . Patient reports her last menstrual cycle was on May 16, 2020, she was seen here few days ago, her estimated due date is February 20, 2021. Patient is 4, para 2, with 1 previous miscarriage. She states that her symptoms are similar to her previous miscarriage. Patient reports that blood clots have been coming out of her vagina today. She denies saturating more than 1 pad per hour. Patient states that the bleeding began Friday with brown vaginal discharge she was seen in this ER and told everything was normal. She states that the bright red blood began yesterday but was intermittent. She states that the bleeding became more constant today. She currently rates her pain a 6 out of 10 on the pain scale, she describes the pain as cramping, she denies any alleviating factors patient states she tried taking Tylenol at home with no benefit. Patient states she has not been seen by MARKING DEVICES ASSEMBLER yet, she has an appointment in [facility] at the [facility]. Review of Systems: Review of Systems: Complete ROS is negative unless otherwise noted in HPI. Allergies: Allergies: Allergies Coded Allergies Type Severity Reaction Last Updated Verified I S O L A T I O N *CONTACT* Allergy Unknown 09/02/19 Yes No Known Medication Allergies Allergy Unknown 09/02/19 Yes Physical Exam: PE: See Above Constitutional: Well developed, well nourished, no acute distress, appears anxious, non-toxic appearance, obese. [] HENT: Normocephalic, atraumatic, bilateral external ears normal, nose normal. [] Eyes: PERRLA, EOMI, conjunctiva normal, no discharge. [] Neck: Normal range of motion, no stridor. [] Cardiovascular:Heart rate regular rhythm Lungs & Thorax: Respirations even and unlabored, no retractions, no respiratory distress Abdomen: soft, suprapubic tenderness to palpation otherwise nontender, no palpable mass, no pulsatile mass Skin: Warm, dry, no erythema, no rash. [] Extremities: No cyanosis, ROM intact, no edema. [] Neurologic: Alert and oriented X 3, normal motor, normal sensory, no focal deficits noted. [] Psychologic: Affect normal, judgement normal, mood normal. [] Current Patient Data: Labs: Laboratory Tests Test 07/03/20 16:12 White Blood Count 5.2 x10^3/uL (4.0-11.0) Red Blood Count 4.92 x10^6/uL (3.50-5.40) Hemoglobin 10.4 g/dL (12.0-15.5) L Hematocrit 31.6 % (36.0-47.0) L Mean Corpuscular Volume 64 fL (79-100) L Mean Corpuscular Hemoglobin 21 pg (25-35) L Mean Corpuscular Hemoglobin Concent 33 g/dL (31-37) Red Cell Distribution Width 16.7 % (11.5-14.5) H Platelet Count 302 x10^3/uL (140-400) Neutrophils (%) (Auto) 57 % (31-73) Lymphocytes (%) (Auto) 34 % (24-48) Monocytes (%) (Auto) 9 % (0-9) Eosinophils (%) (Auto) 1 % (0-3) Basophils (%) (Auto) 0 % (0-3) Neutrophils # (Auto) 3.0 x10^3/uL (1.8-7.7) Lymphocytes # (Auto) 1.7 x10^3/uL (1.0-4.8) Monocytes # (Auto) 0.5 x10^3/uL (0.0-1.1) Eosinophils # (Auto) 0.0 x10^3/uL (0.0-0.7) Basophils # (Auto) 0.0 x10^3/uL (0.0-0.2) Platelet Estimate Adequate (ADEQUATE) Polychromasia Slight Hypochromasia Mod Basophilic Stippling Present Anisocytosis Slight Microcytosis Marked Ovalocytes Few Schistocytes Occ Maternal Serum HCG Beta Subunit 46820 mIU/mL (0-5) H Sodium Level 140 mmol/L (136-145) Potassium Level 3.7 mmol/L (3.5-5.1) Chloride Level 106 mmol/L (98-107) Carbon Dioxide Level 28 mmol/L (21-32) Anion Gap 6 (6-14) Blood Urea Nitrogen 8 mg/dL (7-20) Creatinine 0.6 mg/dL (0.6-1.0) Estimated GFR (Cockcroft-Gault) 126.2 BUN/Creatinine Ratio 13 (6-20) Glucose Level 88 mg/dL (70-99) Calcium Level 8.8 mg/dL (8.5-10.1) Total Bilirubin 0.6 mg/dL (0.2-1.0) Aspartate Amino Transferase (AST) 27 U/L (15-37) Alanine Aminotransferase (ALT) 49 U/L (14-59) Alkaline Phosphatase 66 U/L (46-116) Total Protein 7.8 g/dL (6.4-8.2) Albumin 4.1 g/dL (3.4-5.0) Albumin/Globulin Ratio 1.1 (1.0-1.7) Laboratory Tests 07/03/20 16:12 Laboratory Tests 07/03/20 16:12 Vital Signs: Vital Signs Date Time Temp Pulse Resp B/P (MAP) Pulse Ox O2 Delivery O2 Flow Rate FiO2 07/03/20 18:03 75 112/71 (85) 98 Room Air 07/03/20 15:48 98.3 20 98.3 EKG: EKG: [] Heart Score: C/O Chest Pain: No Risk Scores: Score 0 - 3: 2.5% MACE over next 6 weeks - Discharge Home Score 4 - 6: 20.3% MACE over next 6 weeks - Admit for Clinical Observation Score 7 - 10: 72.7% MACE over next 6 weeks - Early Invasive Strategies Radiology/Procedures: Radiology/Procedures: PROCEDURE: OB <14 WKS W/TV EXAM: Obstetrics sonogram. HISTORY: Vaginal bleeding in . TECHNIQUE: Transvaginal sonographic imaging of the pelvis was performed. COMPARISON: 07/01/2020. FINDINGS: The uterus is normal in size. The endometrial stripe measures 13 mm in thickness. The recently demonstrated intrauterine gestational sac is no longer seen within the endometrial cavity. There is a small rounded region of hypoechogenicity within the endocervical canal on a single image which may be due to the previously demonstrated gestational sac. The ovaries are normal in size and demonstrate normal blood flow. There is no pelvic free fluid. IMPRESSION: 1. Interval early miscarriage. The recently demonstrated gestational sac is not within the endometrial cavity. The endometrial sac may be passing through the endocervical canal or there are blood products within the endocervical canal, consistent with reported vaginal bleeding. Correlate with serial beta hCG levels to confirm complete decline and exclude missed miscarriage. 2. Unremarkable ovaries. Electronically signed by: Tammy Greenfield MD (07/03/2020 5:26 PM) [facility] Course & Med Decision Making: Course & Med Decision Making Pertinent Labs and Imaging studies reviewed. (See chart for details) 182-spoke with Dr. Billy who is the admitting physician, and care was assumed following discussion of patient. Admit the patient as observation status to the MARKING DEVICES ASSEMBLER floor for incomplete miscarriage. Will order n.p.o. status with D5LR to 125 mL/h. We will also order 4 mg of morphine every 4 hours as needed for pain. Patient's vital signs stable. Patient remains afebrile, appears nontoxic, respirations even and unlabored. Patient will be admitted to the MARKING DEVICES ASSEMBLER floor. Patient's case and plan of care also discussed with Dr. Isidro [] I oversaw on the above date of service of this patient and discussed the care with the TOW MOTOR OPERATOR. I agree with the findings, plan of care, and disposition as documented. Electronically signed, Deandra Isidro DO Critical Care Time This patient required critical care. Due to the fact that the patient required a significant amount of one on one physician - patient contact time, ordering and review of studies, arranging urgent treatment with development of a management plan, evaluation of patients response to treatment with frequent reassessments, and discussions with other providers this patient required 40 minutes of critical care time. Critical care time was indicated due to the inherent instability and/or potential for instability in this patient. The critical care time that is allocated to this patient is above and beyond any time spent on any other billable procedures performed on this patient. Dragon Disclaimer: Dragon Disclaimer: This electronic medical record was generated, in whole or in part, using a voice recognition dictation system. Departure Departure Impression: Primary Impression: Incomplete miscarriage Additional Impression: Vaginal bleeding in Disposition: ADMITTED INPATIENT Admitting Physician: KATHERINE (Dr billy) Condition: STABLE Referrals: UNKNOWN PCP NAME (PCP) Problem Qualifiers KAREN PACHECO APRN July 03, 2020 19:40 DEANDRA ISIDRO DO July 07, 2020 04:33
[2020-07-03 19:58] LABS: CLARITY,URINE CLEAR; COLOR,URINE RED
[2020-07-03 20:00] VITALS: BP 110/65
[2020-07-03 20:04] LABS: RBC,URINE TNTC /HPF (0-2)
[2020-07-03 20:05] LABS: BACTERIA,URINE 0 /HPF (0-FEW)
--- NOTE | 2020-07-03 21:35 | NUR ---
assessed patient bleeding. scant pink discharge 2 in long in pad. Pt states she passed large ( softball sized) clot in ER before transfering to unit. Cramping is lessening and bleeding is ( per patient ) scant
[2020-07-03] MEDS: IBUPROFEN 400 MG TABLET. PO PRN (22:07)
[2020-07-04 04:00] VITALS: BP 96/56
[2020-07-04] MEDS ORDERED: IV DEXTROSE 5%-LACT RINGERS 1,000 ML IV PRN (04:15)
--- NOTE | 2020-07-04 06:35 | NUR ---
IP: Pt has a hx of ESBL in urine on 08/29/19. Pt to be in contact precautions until there is 2 negative urine cultures.
[2020-07-04 08:00] VITALS: BP 97/54
[2020-07-04] MEDS: IBUPROFEN 400 MG TABLET. PO PRN ×2 (11:02→17:17)
--- NOTE | 2020-07-04 11:20 | PDOC ---
GENERAL General: 19yrs old lady came into ER with history of abdominal and Pelvic pain with vaginal Bleeding. Six weeks admitted for Incomplete . VITAL SIGNS Vital Signs/I&O: Vital Signs Date Time Temp Pulse Resp B/P (MAP) Pulse Ox O2 Delivery O2 Flow Rate FiO2 07/04/20 08:00 98.5 63 16 97/54 (68) 100 Room Air 98.5 I & O 07/03/20 07/03/20 07/04/20 15:00 23:00 07:00 Intake Total 2200 ml Balance 2200 ml ALLERGIES Allergies: Allergies Coded Allergies Type Severity Reaction Last Updated Verified I S O L A T I O N *CONTACT* Allergy Unknown 09/02/19 Yes No Known Medication Allergies Allergy Unknown 09/02/19 Yes MEDS Medications: Current Medications Medications (Trade) Dose Ordered Sig/Carlos Alberto Route PRN Reason Start Time Stop Time Status Last Admin Dose Admin Morphine Sulfate (Morphine Sulfate) 4 mg 1X ONCE IV 07/03/20 18:30 07/03/20 18:31 DC 07/03/20 18:37 Ondansetron HCl (Zofran) 4 mg 1X ONCE IV 07/03/20 18:30 07/03/20 18:31 DC 07/03/20 18:36 Dextrose/Lactated Ringer's 1,000 ml @ 125 mls/hr 1X ONCE IV 07/03/20 18:30 07/04/20 02:29 DC 07/03/20 20:06 Ibuprofen (Motrin) 800 mg PRN Q6HRS PRN PO INFLAMMATION 07/03/20 21:45 07/04/20 11:02 LAB Lab: Laboratory Tests Test 07/03/20 16:12 07/03/20 18:42 07/03/20 19:47 White Blood Count 5.2 x10^3/uL (4.0-11.0) Red Blood Count 4.92 x10^6/uL (3.50-5.40) Hemoglobin 10.4 g/dL (12.0-15.5) L Hematocrit 31.6 % (36.0-47.0) L Mean Corpuscular Volume 64 fL (79-100) L Mean Corpuscular Hemoglobin 21 pg (25-35) L Mean Corpuscular Hemoglobin Concent 33 g/dL (31-37) Red Cell Distribution Width 16.7 % (11.5-14.5) H Platelet Count 302 x10^3/uL (140-400) Neutrophils (%) (Auto) 57 % (31-73) Lymphocytes (%) (Auto) 34 % (24-48) Monocytes (%) (Auto) 9 % (0-9) Eosinophils (%) (Auto) 1 % (0-3) Basophils (%) (Auto) 0 % (0-3) Neutrophils # (Auto) 3.0 x10^3/uL (1.8-7.7) Lymphocytes # (Auto) 1.7 x10^3/uL (1.0-4.8) Monocytes # (Auto) 0.5 x10^3/uL (0.0-1.1) Eosinophils # (Auto) 0.0 x10^3/uL (0.0-0.7) Basophils # (Auto) 0.0 x10^3/uL (0.0-0.2) Platelet Estimate Adequate (ADEQUATE) Polychromasia Slight Hypochromasia Mod Basophilic Stippling Present Anisocytosis Slight Microcytosis Marked Ovalocytes Few Schistocytes Occ Maternal Serum HCG Beta Subunit 36094 mIU/mL (0-5) H Sodium Level 140 mmol/L (136-145) Potassium Level 3.7 mmol/L (3.5-5.1) Chloride Level 106 mmol/L (98-107) Carbon Dioxide Level 28 mmol/L (21-32) Anion Gap 6 (6-14) Blood Urea Nitrogen 8 mg/dL (7-20) Creatinine 0.6 mg/dL (0.6-1.0) Estimated GFR (Cockcroft-Gault) 126.2 BUN/Creatinine Ratio 13 (6-20) Glucose Level 88 mg/dL (70-99) Calcium Level 8.8 mg/dL (8.5-10.1) Total Bilirubin 0.6 mg/dL (0.2-1.0) Aspartate Amino Transferase (AST) 27 U/L (15-37) Alanine Aminotransferase (ALT) 49 U/L (14-59) Alkaline Phosphatase 66 U/L (46-116) Total Protein 7.8 g/dL (6.4-8.2) Albumin 4.1 g/dL (3.4-5.0) Albumin/Globulin Ratio 1.1 (1.0-1.7) SARS-CoV-2 RNA (HALLE) Negative (Negative) SARS-CoV-2 Antigen (Rapid) Negative (NEGATIVE) Urine Collection Type Unknown Urine Color Red Urine Clarity Clear Urine pH (<5.0-8.0) Urine Specific [place] 1.010 (1.000-1.030) Urine Protein mg/dL (NEG-TRACE) Urine Glucose (UA) mg/dL (NEG) Urine Ketones (Stick) mg/dL (NEG) Urine Blood (NEG) Urine Nitrite (NEG) Urine Bilirubin (NEG) Urine Urobilinogen Dipstick mg/dL (0.2 mg/dL) Urine Leukocyte Esterase (NEG) Urine RBC Tntc /HPF (0-2) Urine WBC 1-4 /HPF (0-4) Urine Squamous Epithelial Cells Few /LPF Urine Bacteria 0 /HPF (0-FEW) Laboratory Tests 07/03/20 16:12 Laboratory Tests 07/03/20 16:12 ASSESSMENT & PLAN A&P Vital signs stable. Scant vaginal Bleeding. Patient admits passing tissues in ER while waiting to be admitted. Pelvic exam shows Cervix closed Uterus Normal in size. Spotting of Blood seen. Patient has passed the tissues already. Hence patient can go home today. Justifications for Admission Other Justification CARLOS ALBERTO ANDERSON MD July 04, 2020 11:20
[2020-07-04 15:18] VITALS: BP 99/64
--- NOTE | 2020-07-04 18:02 | NUR ---
RN reviewed discharge instructions with pt. and pt. verbalizes understanding and signs discharge papers, RN walks pt. out to her car at [id number]
--- NOTE | 2020-07-05 14:18 | HP ---
CHIEF COMPLAINT/HISTORY OF PRESENT ILLNESS: This patient is a 19-year-old lady who is a 4, para 2, history of one miscarriage and about 6 weeks at this time, came in through the emergency room at [facility] for with vaginal bleeding, abdominal discomfort and she did have an hCG level of 1500 and she did have a sonogram, which showed no pole or sac in the uterus and maybe tissues in the cervical canal and the patient was awaiting in the emergency room and she passed some tissues while she was awaiting in the ER and subsequently she is admitted to the hospital to see if she is going to need D and C for incomplete . PHYSICAL EXAMINATION: VITAL SIGNS: Being stable. HEAD, EYES, EARS, NOSE AND THROAT: Within normal limits. LUNGS: Clear. HEART: Regular sinus rhythm. ABDOMEN: Feels soft. PELVIC: Exam shows external genitalia being normal. Cervical os is closed. On bimanual exam, no tenderness felt in the pelvic area, only spotting seen on the gloved finger during the exam. EXTREMITIES: No edema of feet. IMPRESSION: Possible complete at this time. PLAN: This was explained to the patient regarding possible complete . As she is not bleeding heavy, she does not require D and C and she will be followed as an outpatient within one week's time and see if she has any further problems and followup care. OLLIE/OLAYINKA MATIAS: Gigi TID: [id number]
== END 2020-07-04 18:05 | disposition home or self-care (01) ==
LOC: ER 15:37 → 3 SO LND 18:24
PROVIDERS: ADMIT Obstetrics & Gynecology; ATTEND Obstetrics & Gynecology
DX: O03.4 Incomplete spontaneous abortion without complication (principal); Z20.822 Contact with and (suspected) exposure to COVID-19; O46.90 Antepartum hemorrhage, unspecified, unspecified trimester; N89.8 Other specified noninflammatory disorders of vagina
CPT/HCPCS: 36415; 76801; 76817; 80053; 81001; 84702; 85025; 87426; 96361; 96374; 96375; 96376; 99284; G0378; J2270; J2405; J7121; U0003; U0005; G0379